=== PATIENT | female | born 1990 | race African-American/Black ===

== ENCOUNTER 2023-02-24 00:38 | Day surgery (SDC) | payer OTHER, SELFPAY ==
[2023-02-17 14:44] VITALS: BMI 27.6
--- NOTE | 2023-02-17 14:50 | PC.NURSE ---
Report to the Outpatient Waiting Room, entrance under the green pavilion located off [facility], at time _0630 on date 02/24/23_. Planned Procedure Time: 08. Time changes happen often and if your time is changed the preop area will call you the afternoon before. - You and your visitor will be asked to self-screen and do not enter if you have any COVID symptoms. - A mask is optional within the hospital at this time. Patients may have clear liquids (water, carbonated beverages, clear teas, apple juice) until 3 hours prior to surgery with a maximum of 20 ounces. - No food from midnight until time of surgery - Infants may have breast milk until 4 hours before surgery, formula 6 hours prior to surgery. - Children will be allowed to drink immediately following surgery. If applicable, please bring a bottle or sippy cup to assist with drinking. Juice, water, soda, and popsicles are readily available. For infants on formula, please bring formula the day of surgery. Pacifiers are allowed. Take the following medications with a SIP of water the morning of surgery: NONE DO NOT STOP ANY OF YOUR OTHER PRESCRIPTION MEDICATIONS PRIOR TO SURGERY ?EXCEPT THE FOLLOWING Medications to discontinue per physician NONE Date to take last dose Please no make-up, nail filipino, hairspray, perfume, deodorant, or body powder the day of surgery. No jewelry (including any body piercings) or valuables the day of surgery, leave them at home. Please take a shower or bath the night before, or the morning of, surgery with an antibacterial soap. Wear comfortable, loose fitting clothing. Children are encouraged to wear pajamas. - Jewelry must be removed prior to entering the operating room. Rings and piercings that are not removed may be cut off. - The hospital will not accept responsibility for valuables. - Please leave all valuables, including medications, at home the day of surgery. If you are going home after surgery, a licensed truck driver must drive you home. - NO public transportation without another adult if you receive anesthesia. - We recommend that an adult stay with you for 24 hours following discharge. - We also recommend that you do not drive, make important decision, drink alcoholic beverages, or take any drugs that were not prescribed by your health care provider for at least 24 hours after your discharge time. For Pediatric surgeries, we recommend two adults accompany the child home. Follow any additional instructions given to you from your surgeon. If you or anyone in your household have experienced Covid symptoms in the past week, please notify your surgeon or the nurse liaison at the phone number below for possible testing. Telephone instructions given to FRANCO__and asked if any additional questions and then verbalized understanding. Patient advised to call surgeon office or pre surgery nurse liaison [phone] if any additional questions.
--- NOTE | 2023-02-23 12:45 | PM.IMHP ---
H&P: HPI History of Present Illness Date/Time: 02/23/23 12:45 Chief Complaint: Recurrent tonsillitis adenoid hypertrophy snoring halitosis tonsil stones Narrative: planned procedure Review of Systems Review of Systems: All systems reviewed & are unremarkable except as noted in HPI and below [facility] Surgical History Surgical History (Updated 12/28/22 @ 13:27 by Latanya Camara CMA) [place] teeth removed Social History Social History (Updated 12/28/22 @ 13:26 by Latanya Camara CMA) Smoking status: Never smoker Alcohol intake: current Drinks per week: 2 Substance use: never Lack of Transportation: No Lack of Food: Never True Current Housing: I Have Housing Concerned About Future Housing: No Difficulty Paying Gas/Electric Bills: No Difficulty Paying for Meds: No Currently Unemployed: No Education: Associate Degree Difficulty w/ Childcare or Family Care: No Living arrangements: with family Meds Home Medications and Allergies Home Medications Medication Instructions Recorded Confirmed Type dextroamphetamine-amphetamine 20 20 mg PO DAILY PRN HYPERACTIVITY 02/17/23 02/17/23 History mg tablet (Adderall) Allergies Allergy/AdvReac Type Severity Reaction Status Date / Time No Known Allergies Allergy Verified 02/17/23 14:43 Exam Narrative: chronic appearing tonsils large adenoids Assessment and Plan Assessment and plan (1) Adenoid hypertrophy: Code(s): J35.2 - Hypertrophy of adenoids Status: Acute Assessment and Plan: OR for tonsillectomy and adenoidectomy risks were discussed including bleeding infection damage to any structure of the clavicles by myself. Damage to any structure during the injection and remains anesthesia including vocal cord paralysis. Change in swallow change in taste could be permanent. . Postoperative bleeding 3-5%. Time off work time off school. Inherent risk of narcotic use. Patient voiced understanding and agreed. (2) Snoring: Code(s): R06.83 - Snoring Status: Acute (3) Halitosis: Code(s): R19.6 - Halitosis Status: Acute (4) Tonsil stone: Code(s): J35.8 - Other chronic diseases of tonsils and adenoids Status: Acute (5) Tonsillar hypertrophy: Code(s): J35.1 - Hypertrophy of tonsils Status: Acute (6) Recurrent tonsillitis: Code(s): J03.91 - Acute recurrent tonsillitis, unspecified Status: Acute (7) Dysphagia: Code(s): R13.10 - Dysphagia, unspecified Status: Acute
[2023-02-24] VITALS (10 sets, daily range): BP systolic 113–124; BP diastolic 68–80; PULSE 64–92; RESP 15–21; TEMP 36.2–37.4; O2SAT 94–100
[2023-02-24] MEDS: ACETAMINOPHEN 500 MG TABLET 1000 MG PO (07:14)
--- NOTE | 2023-02-24 07:22 | WPDHPUPDATE1 ---
History and Physical Update Update Date/Time: 02/24/23 07:22 History and Physical has been reviewed, including an updated exam of the patient. There are NO changes in the patient's condition. Risks, benefits, and alternatives have been discussed and questions answered. Patient agrees to proceed with procedure.
[2023-02-24] MEDS: LACTATED RINGERS 1,000 ML 30 ML IV CONT ×2 (07:40→10:11)
--- NOTE | 2023-02-24 07:41 | WPDANESEPPF ---
Anes - Initial Pre Proc Eval Procedure: Operation Date: 02/24/23 08:30 Proposed Procedures p Tonsillectomy And Adenoidectomy - Naif Morrell MD Date/Time: 02/24/23 07:41 Surgeon: Naif Morrell MD Pre Op Diagnosis: hypertrophic tonsils and adenoids Patient Data Age: 32 Gender: F Height: 1.63 m Weight: 81.7 kg Last Vital Signs Temp 99.4 F 02/24/23 07:20 Pulse 90 02/24/23 07:20 Resp 16 02/24/23 07:20 BP 118/70 02/24/23 07:20 Pulse Ox 97 02/24/23 07:20 O2 Del Method Room Air 02/24/23 07:20 Allergies Allergy/AdvReac Type Severity Reaction Status Date / Time No Known Allergies Allergy Verified 02/24/23 06:57 Home Medications Medication Instructions Recorded Confirmed Type dextroamphetamine-amphetamine 20 20 mg PO DAILY PRN HYPERACTIVITY 02/17/23 02/17/23 History mg tablet (Adderall) Patient hx anesthesia problems: none Family hx anesthesia problems: none Results Review: All pre-operative results and documents have been reviewed as part of the pre-operative evaluation. [facility] Surgical History Surgical History (Updated 12/28/22 @ 13:27 by Latanya Camara CMA) [place] teeth removed Social History Social History (Updated 12/28/22 @ 13:26 by Latanya Camara CMA) Smoking status: Never smoker Alcohol intake: current Drinks per week: 2 Substance use: never Lack of Transportation: No Lack of Food: Never True Current Housing: I Have Housing Concerned About Future Housing: No Difficulty Paying Gas/Electric Bills: No Difficulty Paying for Meds: No Currently Unemployed: No Education: Associate Degree Difficulty w/ Childcare or Family Care: No Living arrangements: with family Anes - Eval Final PreProcedure Day of Procedure 02/24/23 07:41 Patient weight: obese Heart: regular rate and rhythm Lungs: clear to auscultation Airway: Mallampati scale class II Neurological: alert and oriented Last oral intake: >/= 8 hours ASA classification: II Emergent: no Anesthetic plan: proceed Anesthesia type and monitoring: general ETT and standard monitoring Results Review: All pre-operative results and documents have been reviewed as part of the pre-operative evaluation. Informed Consent: The patient's anesthetic plan and its attendant risks and benefits were discussed with the patient/family/POA. Questions were solicited and answers provided to the satisfaction of the patient/family/POA.
[2023-02-24] MEDS: fentaNYL CITRATE INJ (*CRX) 100 MCG/2 ML VIAL 25 MCG IV PUSH ×4 (10:22→10:41)
[2023-02-24] MEDS: oxyCODONE HCL (*CRX) 5 MG TAB IR PO (11:36)
--- NOTE | 2023-02-24 12:39 | P.OP_ITS ---
Procedure Note - Detailed Date of Procedure 02/24/23 Pre-op Diagnosis hypertrophic tonsils and adenoids , recurrent tonsillitis Post-op Diagnosis Same Procedure Performed tonsillectomy Surgeon Naif Morrell MD Anesthesia General Indications see above Findings tonsils had purulence in them a cyst behind the left tonsils well have to excise that leaving a little bit of a gap. Little bit of an extra space. Description of Procedure Patient identified consent verified preop. Patient brought to the operating room. Time-out performed. General anesthesia induced endotracheal tube secured. Patient prepped draped positioned procedure confirmed a 2nd time-out performed. McIvor mouth gag inserted revealing tonsil described above they were very endophytic the tonsils themselves prior to the procedure appeared noninfected. They were removed in extracapsular plane using Bovie electrocautery setting of 11. Any bleeding was controlled Bovie suction electrocautery setting of 12 in 15. Upon dissection it was noted there was purulence within the tonsils themselves began to support out there was infected cyst as well the cyst on the right side came with the tonsil on the left side had to dissect the cyst out once the tonsils removed. In-between tonsils McIvor mouth gag was lowered and reopened to allow blood flow return to the tongue. Red rubber catheters were placed the adenoids were viewed and was recently non- existent. Red rubber catheters removed. The McIvor mouth gag was then lowered for an additional 30 seconds reopened to reveal no further bleeding from the tonsillar fossa. There was a space in between muscular layers on the left side that the cyst was dissected from. This was marsupialized somewhat cephalad not get stuck and when she is healed. McIvor mouth gag was removed. Total blood loss about 10 cc. I performed all dictated portion of the procedure. No complications. Care the patient is back to Anesthesiology. Patient was taken to PACU. Estimated Blood Loss 10 Drains No Packing No Pathology Yes Complications No immediate complications Condition Stable Disposition PACU [facility] Billing Surgery - Charge Forward: Surgery Billing
== END 2023-02-24 12:44 | disposition home or self-care (01) ==
PROVIDERS: Visit Provider Otolaryngology
PROC: (CPT 42826; principal; 2023-02-24 08:30)
DX: J35.1 Hypertrophy of tonsils (principal); J39.2 Other diseases of pharynx; R06.83 Snoring; R19.6 Halitosis; E66.9 Obesity, unspecified; Z68.30 Body mass index [BMI] 30.0-30.9, adult
CPT/HCPCS: 42826; 42808; 88302; A9270; J0330; J1100; J2250; J2405; J2704; J3010; J7120

== ENCOUNTER 2023-02-27 17:34 | Emergency (ER) | payer OTHER, SELFPAY ==
--- NOTE | 2023-02-27 17:58 | ED.GENADULT ---
HPI - General Adult General Chief complaint: Recheck/Abnormal Lab/Rx Stated complaint: post op check Time Seen by Provider: 02/27/23 17:39 History of Present Illness HPI narrative: 32-year-old female presented the emergency department for evaluation of sore throat after having a rinse and tonsillectomy by Dr. Morrell. Patient states that due to her sore throat she has been unable to keep down her medications. Patient denies any bleeding. Related Data Home Medications Medication Instructions Recorded Confirmed dextroamphetamine-amphetamine 20 20 mg PO DAILY PRN HYPERACTIVITY 02/17/23 02/17/23 mg tablet (Adderall) Allergies Allergy/AdvReac Type Severity Reaction Status Date / Time No Known Allergies Allergy Verified 02/27/23 18:40 Review of Systems Review of Systems: All systems reviewed & are unremarkable except as noted in HPI and below PMF[facility] Surgical History Surgical History (Updated 12/28/22 @ 13:27 by Latanya Camara CMA) [place] teeth removed Social History Social History (Updated 12/28/22 @ 13:26 by Latanya Camara [facility]) Smoking status: Never smoker Alcohol intake: current Drinks per week: 2 Substance use: never Lack of Transportation: No Lack of Food: Never True Current Housing: I Have Housing Concerned About Future Housing: No Difficulty Paying Gas/Electric Bills: No Difficulty Paying for Meds: No Currently Unemployed: No Education: Associate Degree Difficulty w/ Childcare or Family Care: No Living arrangements: with family Exam Narrative: APPEARANCE: Well appearing, no pain, no distress, well-nourished. HEAD: normocephalic, atraumatic. EYES: PERRLA/EOMI, conjunctivae clear. NOSE: Normal no drainage EARS:TMS clear with good light reflex. THROAT: Well-appearing eschars. No significant posterior swelling. RESPIRATORY: Airway patent, respirations nonlabored. Clear to auscultation bilaterally, no rales, rhonchi, wheezing. CARDIOVASCULAR: Regular rate and rhythm without murmurs rubs or gallops. ABDOMINAL: Soft, nontender, nondistended, normal bowel sounds MUSCULOSKELETAL: Moves all extremities. Strength/ROM intact, No edema, No calf tenderness. NEURO: Alert. Cranial nerves II through XII intact. Grossly intact SKIN: Warm, dry. Normal Color Course Course Emergency Course: 52-year-old female presented the emergency department for evaluation of post tonsillectomy pain. Patient has been in contact with her ENT. Dr. Morrell did call the emergency department to document the patient. He was hoping that the patient can be rehydrated and given medications for pain control. Patient was updated on this plan. All question concerns were addressed. Vital Signs Vital signs: Vital Signs Temperature 98.4 F 02/27/23 18:25 Pulse Rate 112 H 02/27/23 18:25 Respiratory Rate 16 02/27/23 18:25 Blood Pressure 137/84 02/27/23 18:25 Pulse Oximetry 97 02/27/23 18:25 Oxygen Delivery Room Air 02/27/23 18:25 Temperature 98.4 F 02/27/23 18:25 Pulse Rate 87 02/27/23 22:02 Respiratory Rate 15 02/27/23 22:02 Blood Pressure 131/78 02/27/23 22:02 Pulse Oximetry 99 02/27/23 22:02 Oxygen Delivery Room Air 02/27/23 18:25 Medical Decision Making Differential Diagnosis Differential Diagnosis: Postop bleeding, postop swelling, postop pain. Dehydration Vital Signs Vital Signs: Vital Signs Temperature 98.4 F 02/27/23 18:25 Pulse Rate 112 H 02/27/23 18:25 Respiratory Rate 16 02/27/23 18:25 Blood Pressure 137/84 02/27/23 18:25 Pulse Oximetry 97 02/27/23 18:25 Oxygen Delivery Room Air 02/27/23 18:25 Temperature 98.4 F 02/27/23 18:25 Pulse Rate 87 02/27/23 22:02 Respiratory Rate 15 02/27/23 22:02 Blood Pressure 131/78 02/27/23 22:02 Pulse Oximetry 99 02/27/23 22:02 Oxygen Delivery Room Air 02/27/23 18:25 Lab Data 02/27/23 18:03 02/27/23 18:03 Labs:
[2023-02-27 18:08] LABS: Basophils Percent Auto 0.4 % (0.2-1.2); Eosinophils Absolute Auto 0.1 K/mm3 (0-0.3); Eosinophils Percent Auto 1.4 % (0-4.4); Hematocrit 37.4 % (37.0-47.0); Hemoglobin 11.4 g/dL (12.0-15.0); Immature Granulocyte Absolute 0.01 K/mm3 (0.00-0.031); Immature Granulocyte Percent A 0.1 % (0-0.5); Lymphocytes Absolute Auto 2.98 K/mm3 (0.9-3.2); Lymphocytes Percent Auto 40.3 % (18.3-44.2); Mean Corpuscular HGB Conc 30.5 g/dl (32-36); Mean Corpuscular Hemoglobin 24.6 pg (26-34); Mean Corpuscular Volume 80.8 fl (80-100); Mean Platelet Volume 10.5 fl (7.4-10.4); Monocytes Absolute Auto 0.6 K/mm3 (0.1-0.6); Monocytes Percent Auto 8.6 % (2.6-8.5); Neutrophils Absolute Auto 3.6 K/mm3 (1.3-6.7); Neutrophils Percent Auto 49.2 % (45.5-73.1); Platelet Count Result 240 k/mm3 (150-375); Red Blood Count 4.63 M/mm3 (4.2-5.4); Red Cell Distribution Width 13.6 % (11.5-14.5); White Blood Count 7.4 K/mm3 (4.5-10.0)
[2023-02-27 18:17] LABS: Alanine Aminotransferase 18 U/L (6-35); Alkaline Phosphatase 74 U/L (38-126); Anion Gap 12 mmol/L (8-16); Aspartate Amino Transferase 20 U/L (14-36); Bilirubin,Total 0.5 mg/dL (0.2-1.3); Blood Urea Nitrogen 12 mg/dL (7-17); Calcium 9.2 mg/dL (8.4-10.2); Carbon Dioxide 25 mmol/L (22-30); Chloride 105 mmol/L (98-107); Estimated Glomerular Filt Rate > 60; Glucose 83 mg/dL (65-110); Potassium 3.8 mmol/L (3.4-5.0); Sodium 142 mmol/L (137-145)
[2023-02-27 18:25] VITALS: BP 137/84; PULSE 112; RESP 16; TEMP 36.9; O2SAT 97
[2023-02-27] MEDS: HYDROmorphone HCL INJ (*CRX) 1 MG/ML SYR IV PUSH (18:28)
[2023-02-27] MEDS: SODIUM CHLORIDE 0.9% IV 1,000 ML 999 ML IV CONT (18:28)
[2023-02-27] MEDS: LACTATED RINGERS 1,000 ML 999 ML IV CONT (19:22)
[2023-02-27 22:02] VITALS: BP 131/78; PULSE 87; RESP 15; O2SAT 99
== END 2023-02-27 22:04 | disposition home or self-care (01) ==
PROVIDERS: Emergency Provider Emergency Medicine
DX: E86.0 Dehydration (principal); J02.9 Acute pharyngitis, unspecified; G89.18 Other acute postprocedural pain
CPT/HCPCS: 36415; 80053; 85025; 96361; 96374; 96375; 99284; J1100; J1170; J7030; J7120

== ENCOUNTER 2023-09-23 04:59 | Emergency (ER) | payer OTHER, SELFPAY ==
--- NOTE | ~2023-09-23 | XR_ITS ---
XR thoracic spine 2V DATE: 09/23/2023 06:11 INDICATION: Back pain TECHNIQUE: AP, lateral, swimmer views COMPARISON: None FINDINGS: There is mild thoracic scoliosis. No fracture or dislocation or bone destruction. The thora cic pedicles are intact. No paraspinal soft tissue thickening. IMPRESSION: Mild scoliosis Reviewed, dictated and finalized at location A. IMPRESSION: Mild scoliosis
--- NOTE | ~2023-09-23 | XR_ITS ---
XR lumbar spine 2-3V DATE: 09/23/2023 06:11 INDICATION: Back pain TECHNIQUE: Standing AP, lateral, coned lateral lumbosacral views COMPARISON: None FINDINGS: There is approximately 17 degrees dextroscoliosis of the lumbar spine measured from L1 to L 5. No fracture or spondylolisthesis or bone destruction. Lumbar and lumbosacral interspaces are preserve d. The sacroiliac joints are intact. IMPRESSION: 17 degrees dextroscoliosis Reviewed, dictated and finalized at location A. IMPRESSION: 17 degrees dextroscoliosis
[2023-09-23 05:04] VITALS: BP 107/71; PULSE 91; RESP 14; TEMP 36.7; O2SAT 100
[2023-09-23] MEDS: KETOROLAC 15 MG/ML VIAL (*BKC) IM (07:50)
[2023-09-23] MEDS: diazePAM INJ (*CRX) 10 MG/2 ML SYRINGE 5 MG IM (07:51)
[2023-09-23] MEDS: LIDOCAINE 5% PATCH 1 PATCH TRANSDERM (07:51)
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
[2023-09-23 08:59] VITALS: BP 116/70; PULSE 81; RESP 18; TEMP 36.6; O2SAT 100
== END 2023-09-23 09:00 | disposition home or self-care (01) ==
PROVIDERS: Emergency Provider Emergency Medicine
DX: M54.9 Dorsalgia, unspecified (principal)
CPT/HCPCS: 72070; 72100; 96372; 99284; A9270; J1885; J3360